=== PATIENT | female | born 1935 | race African-American/Black ===

== ENCOUNTER 2021-06-21 12:38 | Inpatient (IN) | payer MEDICARE ==
[~2021-06-21 12:38] MED LIST: Iopamidol-370 76% 500 ML 1 ML ONE
[2021-06-21 13:30] LABS: #Eosinphils 0.1 thou/uL (0.0-0.7); #Lymphocytes 1.7 thou/uL (1.20-3.40); #Monocytes 0.4 thou/uL (0.11-0.59); #Neutrophils 5.3 thou/uL (1.40-6.50); %Basophils 0.3 % (0.0-1.0); %Eosinophils 0.9 % (0.0-10.0); %Lymphocytes 22.6 % (21.0-51.0); %Monocytes 5.9 % (0.0-10.0); %Neutrophils 70.4 % (42.0-75.0); Hemoglobin 11.5 g/dL (12.0-16.0); Mean Corpuscular HGB CONC 31.6 g/dL (32.0-36.0); Mean Corpuscular Hemoglobin 27.5 pg (27.0-31.0); Mean Corpuscular Volume 86.9 fL (78.0-98.0); Mean Platelet Volume 8.4 fL (7.4-10.4); Platelet Count 367 thou/uL (130-400); RBC Distribution Width 13.4 % (11.5-14.5); Red Blood Cell (RBC) Count 4.19 mill/uL (4.20-5.40); White Blood Cell (WBC) Count 7.5 thou/uL (4.8-10.8)
[2021-06-21 13:44] LABS: Prothrombin Time 13.4 sec (12.0-14.7)
[2021-06-21 13:45] LABS: PTT 28.7 sec (22.9-36.1)
[2021-06-21 14:05] LABS: ALT (SGPT) 8 U/L (8-55); AST (SGOT) 19 U/L (5-34); Albumin 3.8 g/dL (3.4-4.8); Alkaline Phosphatase 98 U/L (40-110); Anion Gap 17 mmol/L (10-20); BUN (Urea Nitrogen) 11 mg/dL (9.8-20.1); Bilirubin, Total 0.6 mg/dL (0.2-1.2); Calc. Creatinine Clearance 0 mL/min (70-130); Calcium 8.8 mg/dL (7.8-10.44); Carbon Dioxide 31 mmol/L (23-31); Chloride 97 mmol/L (98-107); Globulin 3.7 g/dL (2.4-3.5); Glucose 108 mg/dL (83-110); Potassium 3.7 mmol/L (3.5-5.1); Protein, Total 7.5 g/dL (5.8-8.1); Sodium 141 mmol/L (136-145)
[2021-06-21 15:34] LABS: Bilirubin Negative (Negative); Blood, Urine Negative (Negative); Clarity Clear (Clear); Glucose, Urine (Dipstick) Normal (Negative); Ketone, Urine Negative (Negative); Leukocyte Negative Leu/uL (Negative); Nitrite Negative (Negative); Protein, Urine (Dipstick) 10 mg/dL (Neg-Trace); Specific Gravity, Urine 1.007 (1.002-1.036); Urobilinogen Normal mg/dL (Less than 2)
[2021-06-21] MEDS ORDERED: hydrALAZINE 20 MG/ML VIAL SLOW IVP PRN (15:48)
[2021-06-21 16:19] LABS: SARS-CoV-2 NAA Rapid Test Not Detected (NotDetected)
[2021-06-21] MEDS ORDERED: Lorazepam 2 MG/ML VIAL ONE (17:41)
[2021-06-21] MEDS: Lorazepam 2 MG/ML VIAL SLOW IVP PRN ×2 (18:19→21:39)
[2021-06-21] MEDS ORDERED: Ondansetron PF 4 MG/2 ML Vial IVP PRN (20:42)
[2021-06-21] MEDS: Atorvastatin Calcium 40 MG TAB PO SCH (21:00)
[2021-06-22 03:54] LABS: Lactic Acid 1.5 mmol/L (0.5-2.2)
[2021-06-22 03:59] LABS: Cardiac Risk 3.8 (Less than 4.5)
[2021-06-22] MEDS ORDERED: Senokot S 8.6-50 MG TAB PO PRN (06:53)
[2021-06-22] MEDS ORDERED: GUAIFENESIN SF SOLN 200 MG/10 ML UDCUP PO PRN (06:53)
[2021-06-22] MEDS ORDERED: Sodium Chloride 0.65% Nasal 44 ML BOT EA NARE PRN (06:53)
[2021-06-22] MEDS ORDERED: Artificial Tear Sol 15 ML BOT EA EYE PRN (06:53)
[2021-06-22] MEDS ORDERED: Loratadine 10 MG TAB PO PRN (06:53)
[2021-06-22] MEDS ORDERED: Cepastat Lozenges 1 LOZ PO PRN (06:53)
[2021-06-22] MEDS ORDERED: Bisacodyl 5 MG TAB PO PRN (06:53)
[2021-06-22] MEDS ORDERED: Calcium Carbonate 500 MG ChewTAB PO PRN (06:53)
[2021-06-22] MEDS ORDERED: Diphenoxylate HCl/Atropine Tablet PO PRN (06:53)
[2021-06-22] MEDS ORDERED: HYDROcodone/Acetaminophen 5/325 mg Tablet PO PRN (06:53)
[2021-06-22] MEDS ORDERED: Ondansetron ODT 4 MG TAB PO PRN (06:53)
[2021-06-22] MEDS ORDERED: Hydrocerin (Eucerin) Cream 120 gm Jar TOP PRN (06:53)
[2021-06-22] MEDS ORDERED: Melatonin 3 MG TAB PO PRN (06:54)
[2021-06-22] MEDS ORDERED: Aspirin 81 mg Enteric Coated Tablet PO SCH (09:00)
[2021-06-22] MEDS: levETIRAcetam in NS 1,000 MG in Premix Bag 1 BAG IVPB SCH ×2 (13:36→21:56)
[2021-06-22] MEDS: Lorazepam 2 MG/ML VIAL SLOW IVP PRN ×2 (13:41→21:57)
[2021-06-22] MEDS: hydrALAZINE 20 MG/ML VIAL SLOW IVP PRN (21:56)
[2021-06-22] MEDS: Atorvastatin Calcium 40 MG TAB PO SCH (22:13)
[2021-06-23 04:05] LABS: Anion Gap 15 mmol/L (10-20); BUN (Urea Nitrogen) 18 mg/dL (9.8-20.1); Calc. Creatinine Clearance 48 mL/min (70-130); Calcium 8.9 mg/dL (7.8-10.44); Carbon Dioxide 34 mmol/L (23-31); Chloride 99 mmol/L (98-107); Glucose 104 mg/dL (83-110); Sodium 145 mmol/L (136-145)
[2021-06-23 04:08] LABS: Potassium 2.6 mmol/L (3.5-5.1)
[2021-06-23] MEDS ORDERED: Electrolyte Replacement Protocol FS PRN (04:45)
[2021-06-23 04:46] LABS: Magnesium 1.3 mg/dL (1.6-2.6)
[2021-06-23] MEDS: Potassium Chloride 20 MEQ in Premix Bag 1 BAG IVPB SCH ×3 (06:38→14:10)
[2021-06-23] MEDS: Magnesium 2 GM/50 ML 2 GM in Premix Bag 1 BAG IVPB SCH ×2 (06:38→12:20)
[2021-06-23] MEDS ORDERED: Magnesium 2 GM/50 ML 2 GM in Premix Bag 1 BAG IVPB SCH (09:45)
[2021-06-23] MEDS: levETIRAcetam in NS 1,000 MG in Premix Bag 1 BAG IVPB SCH ×2 (12:20→20:25)
[2021-06-23] MEDS: Aspirin 325 MG TAB PO SCH (12:29)
[2021-06-23] MEDS: Atorvastatin Calcium 40 MG TAB PO SCH (20:25)
[2021-06-24 05:09] LABS: #Lymphocytes 0.8 thou/uL (1.20-3.40); #Monocytes 0.5 thou/uL (0.11-0.59); #Neutrophils 12.9 thou/uL (1.40-6.50); %Basophils 0.1 % (0.0-1.0); %Eosinophils 0.1 % (0.0-10.0); %Lymphocytes 5.5 % (21.0-51.0); %Monocytes 3.7 % (0.0-10.0); %Neutrophils 90.7 % (42.0-75.0); Hemoglobin 10.6 g/dL (12.0-16.0); Mean Corpuscular HGB CONC 30.8 g/dL (32.0-36.0); Mean Corpuscular Hemoglobin 26.9 pg (27.0-31.0); Mean Corpuscular Volume 87.2 fL (78.0-98.0); Mean Platelet Volume 8.8 fL (7.4-10.4); Platelet Count 323 thou/uL (130-400); RBC Distribution Width 13.5 % (11.5-14.5); Red Blood Cell (RBC) Count 3.95 mill/uL (4.20-5.40); White Blood Cell (WBC) Count 14.3 thou/uL (4.8-10.8)
[2021-06-24 05:22] LABS: Phosphorus 4.1 mg/dL (2.3-4.7)
[2021-06-24 05:26] LABS: Anion Gap 15 mmol/L (10-20); BUN (Urea Nitrogen) 36 mg/dL (9.8-20.1); Calc. Creatinine Clearance 36 mL/min (70-130); Carbon Dioxide 32 mmol/L (23-31); Chloride 98 mmol/L (98-107); Glucose 101 mg/dL (83-110); Magnesium 2.6 mg/dL (1.6-2.6); Potassium 3.3 mmol/L (3.5-5.1); Sodium 142 mmol/L (136-145)
[2021-06-24] MEDS ORDERED: Potassium Chloride 40 MEQ in Sodium Chloride 0.9% 250 ML 250 ML IVPB SCH (07:00)
[2021-06-24] MEDS: Aspirin 325 MG TAB PO SCH (08:22)
[2021-06-24] MEDS: levETIRAcetam in NS 1,000 MG in Premix Bag 1 BAG IVPB SCH ×2 (11:10→22:27)
[2021-06-24 14:09] LABS: Potassium 3.8 mmol/L (3.5-5.1)
[2021-06-24] MEDS: Atorvastatin Calcium 40 MG TAB PO SCH (22:27)
[2021-06-25 05:07] LABS: Magnesium 2.3 mg/dL (1.6-2.6)
[2021-06-25] MEDS: levETIRAcetam in NS 1,000 MG in Premix Bag 1 BAG IVPB SCH ×2 (09:47→23:09)
[2021-06-25] MEDS: Aspirin 325 MG TAB PO SCH (09:47)
[2021-06-25] MEDS: Atorvastatin Calcium 40 MG TAB PO SCH (22:32)
[2021-06-26 05:59] LABS: #Lymphocytes 1.3 thou/uL (1.20-3.40); #Monocytes 0.7 thou/uL (0.11-0.59); %Basophils 0.2 % (0.0-1.0); %Eosinophils 0.4 % (0.0-10.0); %Lymphocytes 16.2 % (21.0-51.0); %Monocytes 8.2 % (0.0-10.0); %Neutrophils 75.1 % (42.0-75.0); Hemoglobin 10.4 g/dL (12.0-16.0); Mean Corpuscular Hemoglobin 27.2 pg (27.0-31.0); Mean Corpuscular Volume 87.5 fL (78.0-98.0); Mean Platelet Volume 8.9 fL (7.4-10.4); Platelet Count 307 thou/uL (130-400); RBC Distribution Width 13.3 % (11.5-14.5); Red Blood Cell (RBC) Count 3.84 mill/uL (4.20-5.40)
[2021-06-26 06:15] LABS: ALT (SGPT) 7 U/L (8-55); AST (SGOT) 13 U/L (5-34); Alkaline Phosphatase 69 U/L (40-110); Anion Gap 10 mmol/L (10-20); BUN (Urea Nitrogen) 25 mg/dL (9.8-20.1); Bilirubin, Total 0.6 mg/dL (0.2-1.2); Calc. Creatinine Clearance 54 mL/min (70-130); Calcium 9.1 mg/dL (7.8-10.44); Carbon Dioxide 34 mmol/L (23-31); Chloride 101 mmol/L (98-107); Globulin 3.4 g/dL (2.4-3.5); Glucose 100 mg/dL (83-110); Magnesium 1.9 mg/dL (1.6-2.6); Potassium 3.3 mmol/L (3.5-5.1); Protein, Total 6.4 g/dL (5.8-8.1); Sodium 142 mmol/L (136-145)
[2021-06-26] MEDS ORDERED: Potassium Chloride 20 MEQ TAB PO SCH (07:15)
[2021-06-26] MEDS: Aspirin 325 MG TAB PO SCH (08:48)
[2021-06-26] MEDS: hydrALAZINE 20 MG/ML VIAL SLOW IVP PRN (09:00)
[2021-06-26] MEDS ORDERED: Magnesium 2 GM/50 ML 2 GM in Premix Bag 1 BAG IVPB SCH (09:30)
[2021-06-26] MEDS ORDERED: Lisinopril 10 MG TAB PO SCH (10:15)
[2021-06-26] MEDS ORDERED: Carvedilol 6.25 MG TAB PO SCH (10:15)
[2021-06-26] MEDS ORDERED: Amlodipine 10 MG TAB PO SCH (10:15)
[2021-06-26 10:52] VITALS: BMI 22.1
[2021-06-26] MEDS: levETIRAcetam in NS 1,000 MG in Premix Bag 1 BAG IVPB SCH ×2 (11:04→21:56)
[2021-06-26] MEDS ORDERED: Iopamidol 370 76% 100 ML VIAL ONE (11:04)
[2021-06-26] MEDS: Carvedilol 6.25 MG TAB PO SCH (17:37)
[2021-06-26] MEDS: Atorvastatin Calcium 40 MG TAB PO SCH (21:56)
[2021-06-27 06:12] LABS: #Eosinphils 0.1 thou/uL (0.0-0.7); #Lymphocytes 1.1 thou/uL (1.20-3.40); #Monocytes 0.5 thou/uL (0.11-0.59); #Neutrophils 5.6 thou/uL (1.40-6.50); %Basophils 0.2 % (0.0-1.0); %Lymphocytes 15.5 % (21.0-51.0); %Monocytes 6.9 % (0.0-10.0); %Neutrophils 76.4 % (42.0-75.0); Hemoglobin 10.3 g/dL (12.0-16.0); Mean Corpuscular HGB CONC 31.7 g/dL (32.0-36.0); Mean Corpuscular Hemoglobin 27.6 pg (27.0-31.0); Mean Corpuscular Volume 87.1 fL (78.0-98.0); Mean Platelet Volume 9.2 fL (7.4-10.4); Platelet Count 292 thou/uL (130-400); RBC Distribution Width 13.4 % (11.5-14.5); Red Blood Cell (RBC) Count 3.74 mill/uL (4.20-5.40); White Blood Cell (WBC) Count 7.4 thou/uL (4.8-10.8)
[2021-06-27 06:31] LABS: Anion Gap 9 mmol/L (10-20); BUN (Urea Nitrogen) 17 mg/dL (9.8-20.1); Calc. Creatinine Clearance 60 mL/min (70-130); Calcium 8.7 mg/dL (7.8-10.44); Carbon Dioxide 33 mmol/L (23-31); Chloride 98 mmol/L (98-107); Glucose 90 mg/dL (83-110); Potassium 3.4 mmol/L (3.5-5.1); Sodium 137 mmol/L (136-145)
[2021-06-27] MEDS ORDERED: Potassium Chloride 20 MEQ TAB PO SCH (07:00)
[2021-06-27] MEDS ORDERED: Potassium Bicarbonate/Cit Ac 20 MEQ TAB PO SCH (07:45)
[2021-06-27] MEDS: levETIRAcetam in NS 1,000 MG in Premix Bag 1 BAG IVPB SCH ×2 (08:55→22:47)
[2021-06-27] MEDS: Furosemide 40 MG TAB PO SCH (08:56)
[2021-06-27] MEDS: Aspirin 325 MG TAB PO SCH (08:56)
[2021-06-27] MEDS: Lisinopril 10 MG TAB PO SCH (08:56)
[2021-06-27] MEDS: Carvedilol 6.25 MG TAB PO SCH ×2 (08:56→16:30)
[2021-06-27] MEDS ORDERED: Amlodipine 10 MG TAB PO SCH (09:00)
[2021-06-27 14:47] LABS: Potassium 3.7 mmol/L (3.5-5.1)
[2021-06-27] MEDS ORDERED: Magnesium 2 GM/50 ML 2 GM in Premix Bag 1 BAG IVPB SCH (20:15)
[2021-06-27] MEDS: Atorvastatin Calcium 40 MG TAB PO SCH (21:53)
[2021-06-28 06:06] LABS: Anion Gap 7 mmol/L (10-20); BUN (Urea Nitrogen) 15 mg/dL (9.8-20.1); Calc. Creatinine Clearance 60 mL/min (70-130); Calcium 8.7 mg/dL (7.8-10.44); Carbon Dioxide 35 mmol/L (23-31); Chloride 98 mmol/L (98-107); Glucose 91 mg/dL (83-110); Magnesium 2.2 mg/dL (1.6-2.6); Potassium 3.4 mmol/L (3.5-5.1); Sodium 137 mmol/L (136-145)
[2021-06-28] MEDS: Aspirin 325 MG TAB PO SCH (08:56)
[2021-06-28] MEDS: Furosemide 40 MG TAB PO SCH (08:56)
[2021-06-28] MEDS: Carvedilol 6.25 MG TAB PO SCH ×2 (08:56→17:38)
[2021-06-28] MEDS: Lisinopril 10 MG TAB PO SCH (08:56)
[2021-06-28] MEDS: levETIRAcetam in NS 1,000 MG in Premix Bag 1 BAG IVPB SCH (10:22)
[2021-06-28 20:12] VITALS: BP 117/77; TEMP 98.2
== END 2021-06-28 20:17 | DRG 65 ==
LOC: ERS 12:38 → NEURO 17:45 → CCU 19:46 → IMCU/EMU 06-22 12:52 → NEURO 06-24 21:06
PROVIDERS: ADMIT Hospitalist; ATTEND Hospitalist
DX: I63.411 Cerebral infarction due to embolism of right middle cerebral artery (principal); G81.94 Hemiplegia, unspecified affecting left nondominant side; G93.40 Encephalopathy, unspecified; F01.51 Vascular dementia, unspecified severity, with behavioral disturbance; Z20.822 Contact with and (suspected) exposure to COVID-19; E78.5 Hyperlipidemia, unspecified; K21.9 Gastro-esophageal reflux disease without esophagitis; I25.10 Atherosclerotic heart disease of native coronary artery without angina pectoris; I48.0 Paroxysmal atrial fibrillation; R29.810 Facial weakness; G93.89 Other specified disorders of brain; I51.9 Heart disease, unspecified; I10 Essential (primary) hypertension; E87.6 Hypokalemia; E83.42 Hypomagnesemia; Z79.899 Other long term (current) drug therapy; H54.8 Legal blindness, as defined in USA
CPT/HCPCS: 36415; 36416; 70450; 70496; 70498; 70551; 71045; 71260; 80048; 80053; 80061; 81003; 83605; 83735; 84100; 84484; 85025; 85610; 85730; 93005; 93010; 93306; 95712; 95816; 95819; 95957; J0360; J1953; J2060; J2405; J3475; J3480; J7050; Q9967; U0002

== ENCOUNTER 2021-07-17 05:09 | Inpatient (IN) | payer MEDICARE ==
[2021-07-17 06:56] LABS: #Eosinphils 0.3 thou/uL (0.0-0.7); #Lymphocytes 1.6 thou/uL (1.20-3.40); #Monocytes 0.4 thou/uL (0.11-0.59); %Basophils 0.6 % (0.0-1.0); %Eosinophils 3.8 % (0.0-10.0); %Lymphocytes 22.1 % (21.0-51.0); %Monocytes 5.9 % (0.0-10.0); %Neutrophils 67.6 % (42.0-75.0); Hemoglobin 10.8 g/dL (12.0-16.0); Mean Corpuscular Hemoglobin 27.6 pg (27.0-31.0); Mean Platelet Volume 9.2 fL (7.4-10.4); Platelet Count 254 thou/uL (130-400); RBC Distribution Width 14.8 % (11.5-14.5); Red Blood Cell (RBC) Count 3.91 mill/uL (4.20-5.40); White Blood Cell (WBC) Count 7.4 thou/uL (4.8-10.8)
[2021-07-17 07:20] LABS: ALT (SGPT) 15 U/L (8-55); AST (SGOT) 18 U/L (5-34); Albumin 3.4 g/dL (3.4-4.8); Alkaline Phosphatase 102 U/L (40-110); Anion Gap 15 mmol/L (10-20); BUN (Urea Nitrogen) 7 mg/dL (9.8-20.1); Bilirubin, Total 0.5 mg/dL (0.2-1.2); Calc. Creatinine Clearance 0 mL/min (70-130); Calcium 8.1 mg/dL (7.8-10.44); Carbon Dioxide 15 mmol/L (23-31); Chloride 113 mmol/L (98-107); Globulin 3.1 g/dL (2.4-3.5); Glucose 99 mg/dL (83-110); Potassium 3.7 mmol/L (3.5-5.1); Protein, Total 6.5 g/dL (5.8-8.1); Sodium 139 mmol/L (136-145)
[2021-07-17] MEDS ORDERED: Ondansetron PF 4 MG/2 ML Vial IVP PRN ×2 (08:58→09:30)
[2021-07-17] MEDS ORDERED: Acetaminophen 325 MG TAB PO PRN (08:59)
[2021-07-17] MEDS ORDERED: Ondansetron ODT 4 MG TAB PO PRN (08:59)
[2021-07-17 09:37] VITALS: BMI 25.4
[2021-07-17] MEDS ORDERED: hydrALAZINE 20 MG/ML VIAL SLOW IVP PRN (11:46)
[2021-07-17] MEDS ORDERED: Aspirin 300 MG Suppository PR SCH (12:30)
[2021-07-17 15:04] LABS: SARS-CoV-2 PCR by NAA Not Detected (NotDetected)
[2021-07-17] MEDS: Sodium Chloride 0.9% 1,000 ML IV SCH (19:11)
[2021-07-17 21:43] LABS: Bilirubin Negative (Negative); Blood, Urine Negative (Negative); Clarity Clear (Clear); Glucose, Urine (Dipstick) Normal (Negative); Ketone, Urine Trace mg/dL (Negative); Leukocyte 75 Leu/uL (Negative); Nitrite Negative (Negative); Protein, Urine (Dipstick) 20 mg/dL (Neg-Trace); RBC/HPF 0-3 HPF (0-3); Renal Epithelial 0-3 HPF (None Seen); Specific Gravity, Urine 1.015 (1.002-1.036); Squamous Epithelial 0-3 HPF (0-3); Urobilinogen Normal mg/dL (Less than 2); WBC/HPF 0-3 HPF (0-3)
[2021-07-17 21:51] LABS: Bacteria/HPF 2+ HPF (None Seen)
[2021-07-18 05:34] LABS: #Basophils 0.1 thou/uL (0.0-0.2); #Lymphocytes 1.3 thou/uL (1.20-3.40); #Monocytes 0.6 thou/uL (0.11-0.59); #Neutrophils 6.9 thou/uL (1.40-6.50); %Basophils 0.6 % (0.0-1.0); %Eosinophils 0.2 % (0.0-10.0); %Lymphocytes 14.2 % (21.0-51.0); %Monocytes 7.1 % (0.0-10.0); %Neutrophils 77.9 % (42.0-75.0); Mean Corpuscular HGB CONC 31.8 g/dL (32.0-36.0); Mean Corpuscular Hemoglobin 27.7 pg (27.0-31.0); Mean Corpuscular Volume 87.1 fL (78.0-98.0); Mean Platelet Volume 9.2 fL (7.4-10.4); Platelet Count 243 thou/uL (130-400); Red Blood Cell (RBC) Count 3.63 mill/uL (4.20-5.40); White Blood Cell (WBC) Count 8.8 thou/uL (4.8-10.8)
[2021-07-18 05:58] LABS: Anion Gap 16 mmol/L (10-20); BUN (Urea Nitrogen) 12 mg/dL (9.8-20.1); Calc. Creatinine Clearance 42 mL/min (70-130); Calcium 8.3 mg/dL (7.8-10.44); Carbon Dioxide 12 mmol/L (23-31); Cardiac Risk 3.9 (Less than 4.5); Chloride 115 mmol/L (98-107); Cholesterol 145 mg/dl (< 200 Desired); Glucose 92 mg/dL (83-110); HDL Cholesterol 37 mg/dL (>60 Neg Risk); LDL Cholesterol, Calculated 89 mg/dL; Magnesium 1.4 mg/dL (1.6-2.6); Potassium 4.1 mmol/L (3.5-5.1); Sodium 139 mmol/L (136-145); Triglycerides 96 mg/dL (Less than 150)
[2021-07-18] MEDS ORDERED: Lidocaine 1% PF 5 ML VIAL ONE (06:59)
[2021-07-18] MEDS ORDERED: EPINEPHrine 1 MG/ML AMP ONE (06:59)
[2021-07-18] MEDS ORDERED: EPINEPHrine 1 MG/10 ML Abboject SYRINGE ONE (07:00)
[2021-07-18] MEDS: Aspirin 300 MG Suppository PR SCH (09:14)
[2021-07-18] MEDS: cefTRIAXone\\ROCEPHIN 1 GM in Sodium Chloride 0.9% 100 ML IVPB SCH (10:45)
[2021-07-18] MEDS: Sodium Chloride 0.9% 1,000 ML IV SCH (12:11)
[2021-07-18 15:53] LABS: Bacteria/HPF None Seen HPF (None Seen); Bilirubin Negative (Negative); Blood, Urine Negative (Negative); Clarity Clear (Clear); Glucose, Urine (Dipstick) Normal (Negative); Ketone, Urine Negative (Negative); Leukocyte Negative Leu/uL (Negative); Nitrite Negative (Negative); Protein, Urine (Dipstick) 30 mg/dL (Neg-Trace); RBC/HPF 0-3 HPF (0-3); Specific Gravity, Urine 1.017 (1.002-1.036); Squamous Epithelial 0-3 HPF (0-3); Urobilinogen Normal mg/dL (Less than 2); WBC/HPF 0-3 HPF (0-3); pH, Urine 5.5 (5.0-9.0)
[2021-07-18 15:55] LABS: Urine Culture Reflex No No
[2021-07-18] MEDS: Donepezil HCl 5 MG TAB PO SCH (22:01)
[2021-07-18] MEDS: Atorvastatin Calcium 40 MG TAB PO SCH (22:01)
[2021-07-19 06:17] LABS: #Lymphocytes 1.1 thou/uL (1.20-3.40); #Monocytes 0.8 thou/uL (0.11-0.59); #Neutrophils 11.5 thou/uL (1.40-6.50); %Basophils 0.2 % (0.0-1.0); %Eosinophils 0.1 % (0.0-10.0); %Lymphocytes 8.4 % (21.0-51.0); %Monocytes 5.8 % (0.0-10.0); %Neutrophils 85.5 % (42.0-75.0); Hemoglobin 10.2 g/dL (12.0-16.0); Mean Corpuscular HGB CONC 31.7 g/dL (32.0-36.0); Mean Corpuscular Hemoglobin 27.5 pg (27.0-31.0); Mean Corpuscular Volume 86.8 fL (78.0-98.0); Mean Platelet Volume 9.5 fL (7.4-10.4); Platelet Count 219 thou/uL (130-400); RBC Distribution Width 15.3 % (11.5-14.5); White Blood Cell (WBC) Count 13.5 thou/uL (4.8-10.8)
[2021-07-19 06:41] LABS: Anion Gap 18 mmol/L (10-20); BUN (Urea Nitrogen) 24 mg/dL (9.8-20.1); Calc. Creatinine Clearance 23 mL/min (70-130); Calcium 8.9 mg/dL (7.8-10.44); Carbon Dioxide 12 mmol/L (23-31); Chloride 116 mmol/L (98-107); Glucose 114 mg/dL (83-110); Potassium 4.5 mmol/L (3.5-5.1); Sodium 141 mmol/L (136-145)
[2021-07-19] MEDS ORDERED: Clopidogrel Bisulfate 75 MG TAB PO SCH (09:00)
[2021-07-19] MEDS ORDERED: Amino Acids 4.25 %/Dextrose 5% 2,000 ML BAG IV SCH (09:00)
[2021-07-19] MEDS: Aspirin 300 MG Suppository PR SCH (09:37)
[2021-07-19] MEDS: cefTRIAXone\\ROCEPHIN 1 GM in Sodium Chloride 0.9% 100 ML IVPB SCH (09:38)
[2021-07-19] MEDS ORDERED: Magnesium Sulfate 3 GM in Sodium Chloride 0.9% 100 ML IVPB SCH (10:00)
[2021-07-19] MEDS: D5W-AA 4.25% with LYTES 1,000 ML BAG IV SCH (11:57)
[2021-07-19] MEDS: Metoprolol Tartrate 5 MG/5 ML VIAL IVP SCH (19:32)
[2021-07-19] MEDS: Atorvastatin Calcium 40 MG TAB PO SCH (21:31)
[2021-07-19] MEDS: Donepezil HCl 5 MG TAB PO SCH (21:31)
[2021-07-20] MEDS: D5W-AA 4.25% with LYTES 1,000 ML BAG IV SCH (02:49)
[2021-07-20] MEDS: Metoprolol Tartrate 5 MG/5 ML VIAL IVP SCH ×2 (06:16→20:46)
[2021-07-20 06:29] LABS: Anion Gap 15 mmol/L (10-20); BUN (Urea Nitrogen) 47 mg/dL (9.8-20.1); Calc. Creatinine Clearance 24 mL/min (70-130); Calcium 8.5 mg/dL (7.8-10.44); Carbon Dioxide 14 mmol/L (23-31); Chloride 114 mmol/L (98-107); Glucose 125 mg/dL (83-110); Potassium 4.6 mmol/L (3.5-5.1); Sodium 138 mmol/L (136-145)
[2021-07-20 06:31] LABS: Hemoglobin 9.8 g/dL (12.0-16.0); Mean Corpuscular HGB CONC 32.2 g/dL (32.0-36.0); Mean Corpuscular Hemoglobin 27.8 pg (27.0-31.0); Mean Corpuscular Volume 86.5 fL (78.0-98.0); Mean Platelet Volume 9.8 fL (7.4-10.4); Platelet Count 202 thou/uL (130-400); RBC Distribution Width 15.4 % (11.5-14.5); White Blood Cell (WBC) Count 12.9 thou/uL (4.8-10.8)
[2021-07-20 08:56] LABS: Band 9 % (5-11); Basophilic Stippling SLIGHT = 1-2 cells (100X) (None Seen); Burr Cells MODERATE= 6-15 cells (100X) (0-1/hpf); Lymphocytes 10 % (21-51); MDiff Complete? YES; Monocytes 12 % (0-10); Neutrophil 68 % (42-75); Platelet Morphology Comment Appears Adequate; Polychromasia SLIGHT = 2-3 cells (100X) (0-2/hpf); Reactive Lymphocytes 1 % (0-10); Schistocytes SLIGHT = 2-5 cells (100X) (0-1/hpf)
[2021-07-20] MEDS ORDERED: Clopidogrel Bisulfate 75 MG TAB PER TUBE SCH (09:00)
[2021-07-20] MEDS ORDERED: Aspirin 325 MG TAB PER TUBE SCH (11:15)
[2021-07-20] MEDS: Pantoprazole 40 MG GRANULES PACKET PER TUBE SCH (12:19)
[2021-07-20] MEDS: cefTRIAXone\\ROCEPHIN 1 GM in Sodium Chloride 0.9% 100 ML IVPB SCH (12:20)
[2021-07-20] MEDS: Aspirin 300 MG Suppository PR SCH (13:15)
[2021-07-20] MEDS ORDERED: FLU VACC QS2021-22(65YR UP)/PF 240 MCG/0.7 ML SYRINGE IM ONE (15:00)
[2021-07-20] MEDS ORDERED: Sodium Bicarbonate 150 MEQ in Dextrose 5% in Water 1,000 ML IV SCH (17:45)
[2021-07-20] MEDS ORDERED: Atorvastatin Calcium 40 MG TAB PER TUBE SCH (21:00)
[2021-07-20] MEDS ORDERED: Donepezil HCl 5 MG TAB PER TUBE SCH (21:00)
[2021-07-21 02:01] LABS: Creatinine, Urine 299.23 mg/dL (47-110)
[2021-07-21 06:23] LABS: Albumin 2.8 g/dL (3.4-4.8); Anion Gap 12 mmol/L (10-20); BUN (Urea Nitrogen) 61 mg/dL (9.8-20.1); Calc. Creatinine Clearance 27 mL/min (70-130); Calcium 8.4 mg/dL (7.8-10.44); Carbon Dioxide 18 mmol/L (23-31); Chloride 110 mmol/L (98-107); Glucose 144 mg/dL (83-110); Phosphorus 3.4 mg/dL (2.3-4.7); Potassium 3.9 mmol/L (3.5-5.1); Sodium 136 mmol/L (136-145)
[2021-07-21] MEDS ORDERED: Aspirin 325 MG TAB PER TUBE SCH (09:00)
[2021-07-21] MEDS: cefTRIAXone\\ROCEPHIN 1 GM in Sodium Chloride 0.9% 100 ML IVPB SCH (11:02)
[2021-07-21] MEDS: Carvedilol 6.25 MG TAB PER TUBE SCH ×2 (11:03→18:07)
[2021-07-21] MEDS: Pantoprazole 40 MG GRANULES PACKET PER TUBE SCH (11:03)
[2021-07-21 16:31] VITALS: BP 120/85; TEMP 98.6
== END 2021-07-21 19:10 | disposition hospice, home (50) | DRG 64 ==
LOC: ERS 05:09 → NEURO 07:34
PROVIDERS: ADMIT Family Medicine; ATTEND Hospitalist
DX: I63.411 Cerebral infarction due to embolism of right middle cerebral artery (principal); G93.6 Cerebral edema; G93.41 Metabolic encephalopathy; I61.9 Nontraumatic intracerebral hemorrhage, unspecified; G81.91 Hemiplegia, unspecified affecting right dominant side; I48.20 Chronic atrial fibrillation, unspecified; F01.51 Vascular dementia, unspecified severity, with behavioral disturbance; I47.2 Ventricular tachycardia; E87.2 Acidosis; Z20.822 Contact with and (suspected) exposure to COVID-19; F03.90 Unspecified dementia, unspecified severity, without behavioral disturbance, psychotic disturbance, mood disturbance, and anxiety; I10 Essential (primary) hypertension; E78.5 Hyperlipidemia, unspecified; R56.9 Unspecified convulsions; E86.9 Volume depletion, unspecified; D64.9 Anemia, unspecified; I48.0 Paroxysmal atrial fibrillation; R13.10 Dysphagia, unspecified; E86.0 Dehydration; Z79.82 Long term (current) use of aspirin; Z86.72 Personal history of thrombophlebitis; Z79.899 Other long term (current) drug therapy
CPT/HCPCS: 36415; 70450; 70551; 71045; 74018; 80048; 80061; 80069; 81001; 82570; 83735; 84145; 84156; 84300; 84484; 84540; 85025; 85652; 86140; 87040; 87149; 93005; 95712; 95819; 95957; J0171; J0696; J3475; J3490; J7050; J7070; U0003; U0005